=== PATIENT | male | born 1990 | race Caucasian/White ===

== ENCOUNTER 2017-11-29 11:59 | Emergency (ER) | payer SELFPAY ==
[~2017-11-29] VITALS: Ht 188 cm; Wt 128.0 kg
[2017-11-29 12:03] VITALS: BP 165/107; PULSE 70; RESP 18; TEMP 98.1; O2SAT 96
[2017-11-29] MEDS ORDERED: KEPP10002 PO (12:15)
--- NOTE | 2017-11-29 12:51 | PD ---
HPI Chief Complaint: Nosebleed Time Seen by Provider: 12:46 Travel History International Travel<30 days: No Contact w/Intl Traveler<30days: No Traveled to known affect area: No History of Present Illness HPI 27-year-old male patient with history of seizure disorder, has had several days history of cough and cold symptoms, started having epistaxis today, tried to stop it at home but it kept going down his throat and comes to the ER because of ongoing nosebleeding. He denies any chest pain, shortness of breath, dizziness, or any other issues. Patient is not on any blood thinners and has had no previous issues with bleeding. Modifying Factors: None Associated Signs & Symptoms: Nosebleeding Risk Factors: None History Past Medical Histgory Tetanus Vaccination: > 5 Years Social History Alcohol Use: Yes (SOCIAL) Tobacco Use: Yes (SOCIAL) Allergies-Medications (Allergen,Severity, Reaction): Coded Allergies: yamila (Verified Allergy, Intermediate, HIVES, 11/29/17) poison eric extract (Verified Allergy, Intermediate, HIVES, 11/29/17) Reported Meds & Prescriptions Reported Meds & Active Scripts Active Reported Keppra (Levetiracetam) 1,000 Mg Tab 1,000 Mg PO BID Review of Systems Except as stated in HPI: all other systems reviewed are Neg Physical Exam Narrative GENERAL: Well-developed young male patient currently non-acute distress. Awake and oriented 3. SKIN: Focused skin assessment warm/dry. HEAD: Atraumatic. Normocephalic. EYES: Pupils equal and round. No scleral icterus. No injection or drainage. ENT: Mucosa pink and moist. No erythema or exudates. There is a small amount of blood in the posterior pharynx. No uvular edema. No uvular, palatal, or tonsillar deviation. Airway patent. Nasal turbinates appear normal with small amount of with no active bleeding nasal blood, no purulent drainage or septal hematoma. NECK: Trachea midline. No JVD. CARDIOVASCULAR: Regular rate and rhythm. No murmur appreciated. RESPIRATORY: No accessory muscle use. Clear to auscultation. Breath sounds equal bilaterally. GASTROINTESTINAL: Abdomen soft, non-tender, nondistended. Hepatic and splenic margins not palpable. MUSCULOSKELETAL: No obvious deformities. No clubbing. No cyanosis. No edema. NEUROLOGICAL: Awake and alert. No obvious cranial nerve deficits. Motor grossly within normal limits. Normal speech. PSYCHIATRIC: Appropriate mood and affect; insight and judgment normal. Data Data Last Documented VS Vital Signs Date Time Temp Pulse Resp B/P (MAP) Pulse Ox O2 Delivery O2 Flow Rate FiO2 11/29/17 12:03 98.1 70 18 165/107 (126) 96 MDM Medical Screen Exam Complete: Yes Emergency Medical Condition: No Differential Diagnosis Epistaxis Narrative Course Bleeding has since resolved. Patient is doing well. Vital signs are stable. At this point, he does not have any signs of significant acute medical emergencies. He should return for any worsening and bleeding, new symptoms and as needed. A medical screening exam has been done and there are no signs of acute emergencies. Primary Impression: Epistaxis Disposition: EDGO-ED USE ONLY Condition: Stable Gael Cespedes MD Nov 29, 2017 12:51
== END 2017-11-29 12:57 | disposition left against medical advice (07) ==
LOC: PHED 11:59
DX: R04.0 Epistaxis (principal); Z91.018 Allergy to other foods; Z91.09 Other allergy status, other than to drugs and biological substances
CPT/HCPCS: 99281